=== PATIENT | female | born 1990 | race Caucasian/White ===

== ENCOUNTER 2023-01-14 14:14 | Emergency (ER) | payer OTHER ==
[~2023-01-14] VITALS: Ht 162.6 cm; Wt 70.4 kg
[2023-01-14] MEDS ORDERED: LIDOCAINE 1% HCL (LOCAL ANESTH.) INJ 20ML MDV ID ONE (15:45)
[2023-01-14] MEDS ORDERED: TETANUS-DIPTH-ACEL PERTUSSIS 0.5ML SYR Tdap IM ONE (17:00)
[2023-01-14] MEDS ORDERED: CEPH500C PO (17:06)
[2023-01-14] MEDS ORDERED: IBUP-1455 PO (17:06)
[2023-01-14] MEDS ORDERED: HYDR-4902 PO (17:06)
[2023-01-14 17:46] VITALS: BP 135/90; PULSE 100; RESP 18; TEMP 98.2; O2SAT 99
== END 2023-01-14 17:48 | disposition home or self-care (01) ==
LOC: ER 14:14
DX: S63.250A Unspecified dislocation of right index finger, initial encounter (principal); S61.210A Laceration without foreign body of right index finger without damage to nail, initial encounter; W18.39XA Other fall on same level, initial encounter; Y93.01 Activity, walking, marching and hiking; Y92.89 Other specified places as the place of occurrence of the external cause; Y99.8 Other external cause status
CPT/HCPCS: 12001; 29130; 73130; 90471; 90715; 99284; J2001